=== PATIENT | male | born 1955 | race Caucasian/White ===

== ENCOUNTER → 2017-12-01 15:02 | Outpatient (CLI) | payer MEDICAID, SELFPAY | PROVIDERS: Family Provider Family Medicine; PCP Family Medicine; Visit Provider Nurse Practitioner Family | DX: R06.02 Shortness of breath (principal); I10 Essential (primary) hypertension; R60.0 Localized edema; R79.89 Other specified abnormal findings of blood chemistry; R06.01 Orthopnea; R07.81 Pleurodynia | CPT/HCPCS: 71101; 93306 ==